=== PATIENT | male | born 2000 | race African-American/Black ===

== ENCOUNTER 2023-08-26 08:28 | Outpatient (OUT) | payer BC, SELFPAY ==
--- NOTE | 2023-08-26 08:37 | XR_ITS ---
The [address] [address] Patient Name: DEVON TOLBERT MRN: [id number] date: 2000 Sex: M Assigned Patient Location: RAD Current Patient Location: [facility] Accession/Order Number: [id number] Exam Date: 08/26/2023 08:40 Report Date: 08/26/2023 09:46 At the request of: RUI NAVA Procedure: XR ankle LT min 3V XR ankle LT min 3V, 08/26/2023 8:40 AM EDT, [place]001 INDICATION: Left Ankle Pain COMPARISON: None TECHNIQUE: AP, lateral and oblique views of the ankle are submitted. FINDINGS: The bones appear well mineralized. No acute fracture or subluxation is identified. The joint spaces are maintained. No destructive osseous process is identified. Incidental note is made again of an accessory ossicle or ligamentous calcification adjacent to the medial malleolus. There is mild lateral soft tissue swelling. XR/XR ankle LT min 3V IMPRESSION: Mild lateral soft tissue swelling. No acute osseous injury with intact ankle mortise. Electronically authenticated by: TERESA THOMAS Date: 08/26/2023 09:46
== END 2023-08-26 08:29 | disposition home or self-care (01) ==
LOC: RAD 08:33
PROVIDERS: Visit Provider Orthopaedic Surgery
DX: M25.572 Pain in left ankle and joints of left foot (principal)
CPT/HCPCS: 73610